=== PATIENT | female | born 1950 | race Caucasian/White ===

== ENCOUNTER 2019-05-22 13:05 | Emergency (ER) | payer MEDICARE, OTHER ==
[~2019-05-22] VITALS: Ht 160 cm; Wt 81.2 kg
[2019-05-22] MEDS ORDERED: TETANUS,DIPTH,PERTUSS P/F (BOOSTRIX) 0.5 ML VIAL IM ONE (13:30)
--- NOTE | 2019-05-22 13:42 | ED Upper Extremity ---
General Chief Complaint: Laceration Stated Complaint: RT FINGER INJ Nursing Triage Note: AMB TO ROOM WITH LACERATION TO R 4TH FINGER .WAS CUT ON SAW BLADE Nursing Sepsis Screen: No Definite Risk Source: patient Exam Limitations: no limitations History of Present Illness Date Seen by Provider: May 22, 2019 Time Seen by Provider: 13:36 Initial Comments To ER with laceration to the dorsal aspect of the MCP joint right ring finger. Cut on a saw blade accidentally just prior to arrival. Onset: just prior to arrival Severity: moderate Pain/Injury Location: right 4th finger Modifying Factors: Worse With Movement Allergies and Home Medications Allergies Coded Allergies: Penicillins (Verified Allergy, Unknown, 05/22/19) Home Medications No Active Prescriptions or Reported Meds Patient Home Medication List Home Medication List Reviewed: Yes Review of Systems Constitutional: see HPI EENTM: see HPI Respiratory: no symptoms reported Cardiovascular: no symptoms reported Genitourinary: no symptoms reported Musculoskeletal: see HPI Skin: see HPI Psychiatric/Neurological: No Symptoms Reported Past Sryqbve-Fyhpwe-Jokhwz Hx Patient Social History Alcohol Use: Denies Use Recreational Drug Use: No Smoking Status: Never a Smoker Recent Foreign Travel: No Contact w/Someone Who Travel: No Recent Infectious Disease Expo: No Past Medical History Surgeries: Yes (GASTRIC BY PASS ) Gallbladder, Hysterectomy Respiratory: No Cardiac: No Neurological: No Genitourinary: No Gastrointestinal: No Musculoskeletal: No Endocrine: No HEENT: No Cancer: No Psychosocial: No Physical Exam Vital Signs Vital Signs - First Documented Capillary Refill : Less Than 3 Seconds Height, Weight, BMI Height: 5'2.00" Weight: 180lbs. oz. 81.385802ms; 31.00 BMI Method: General Appearance: WD/WN, no apparent distress HEENT: PERRL/EOMI, normal ENT inspection Respiratory: no respiratory distress, no accessory muscle use Shoulder: normal inspection, non-tender Elbow/Forearm: normal inspection, non-tender Wrist: Yes normal inspection, Yes non-tender Hand: Right (stellate 1 cm laceration down to the subcutaneous tissue, the extensor tendon sheath is visualized but not lacerated. This was anesthetized with 1.5 mL of 2% lidocaine without epinephrine, wound scrubbed with chlorhexidine/saline solution and irrigated with the same. Closed with 5 simple interrupted sutures size 5-0 Ethilon) Neurologic/Tendon: normal sensation, normal motor functions Neurologic/Psychiatric: alert, normal mood/affect, oriented x 3 Skin: normal color, warm/dry Progress/Results/Core Measures Results/Orders My Orders Orders - CLIVE WISE APRN Dipht,Pertuss(Acell),Tet Adult (Boostrix (05/22/19 13:30) Medications Given in ED Current Medications Medications Dose Ordered Sig/Marilee Route Start Time Stop Time Status Last Admin Dose Admin Diphtheria/ Tetanus/Acell Pertussis 0.5 ml ONCE ONCE IM 05/22/19 13:30 05/22/19 13:31 DC 05/22/19 13:28 0.5 ML Vital Signs/I&O 05/22/19 13:11 B/P (MAP) Departure Impression Primary Impression: Finger laceration Qualified Codes: S61.214A - Laceration without foreign body of right ring finger without damage to nail, initial encounter Disposition: 01 HOME, SELF-CARE Condition: Improved Departure-Patient Inst. Decision time for Depature: 13:40 Referrals: NO,LOCAL PHYSICIAN (PCP/Family) Primary Care Physician Patient Instructions: Laceration Repair With Stitches (DC) Add. Discharge Instructions: 1. The splint at all times except when showering for the next 5-6 days. You can take the bandage off showering starting this evening, leading water run over it is fine but don't soak this in water such as a hot tub bath tub or dish sink until the stitches are removed. Return to ER in about 7-10 days whenever convenient for you to have the stitches removed. All discharge instructions revi ewed with patient and/or family. Voiced understanding. Scripts No Active Prescriptions or Reported Meds CLIVE WISE APRN May 22, 2019 13:41
[2019-05-22 13:49] VITALS: BP 138/70
== END 2019-05-22 13:47 | disposition home or self-care (01) ==
LOC: EDUNIT# 13:05 → ER 13:07
DX: S61.214A Laceration without foreign body of right ring finger without damage to nail, initial encounter (principal); Z23 Encounter for immunization; Z88.0 Allergy status to penicillin; Z90.710 Acquired absence of both cervix and uterus; W31.2XXA Contact with powered woodworking and forming machines, initial encounter
CPT/HCPCS: 12001; 29130; 90471; 90715